=== PATIENT | female | born 1970 | race Caucasian/White ===

== ENCOUNTER 2018-12-23 13:56 | Outpatient (CLI) | payer SELFPAY ==
--- NOTE | 2018-12-23 14:20 | RAD ---
EXAM: Chest PA and lateral: HISTORY: Acute bronchitis, unspecified organism COMPARISON: 11/03/2015 FINDINGS: Heart size:Within normal limits. Lungs:Clear of acute process. No confluent pneumonia, overt edema, pleural effusion, or other acute process. IMPRESSION: No significant acute intrathoracic disease.
== END 2018-12-23 13:57 | disposition home or self-care (01) ==
LOC: BICRAD 13:56
PROVIDERS: ATTEND Family Medicine
DX: J20.9 Acute bronchitis, unspecified (principal)
CPT/HCPCS: 71046

== ENCOUNTER 2022-01-23 13:02 | Outpatient (CLI) | payer BC | END 2022-01-23 13:03 | disposition home or self-care (01) | LOC: BICULT 13:02 | PROVIDERS: ATTEND Otolaryngology Plastic Surgery within the Head & Neck | DX: E07.89 Other specified disorders of thyroid (principal) | CPT/HCPCS: 76536 ==

== ENCOUNTER 2025-05-11 08:14 | Outpatient (CLI) | payer BC ==
[2025-05-11] MEDS ORDERED: Iopamidol 370 76% 100 ML VIAL ONE (13:14)
== END 2025-05-11 08:15 | disposition home or self-care (01) ==
LOC: CT 08:14
PROVIDERS: ATTEND Urology
DX: N28.1 Cyst of kidney, acquired (principal)
CPT/HCPCS: 74170; Q9967